=== PATIENT | female | born 1990 | race Asian ===

== ENCOUNTER 2018-04-21 06:18 | Day surgery (SDC) | payer BC ==
--- NOTE | 2018-04-08 10:36 | History and Physical ---
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 Past Medical History: unremarkable Social History:single, no children, employment-retail team member relations Past Medical History: unremarkable Diagnosis: vocal cord tumor Past Surgical History:none Occupational History: [employer] Social History Main Topics: unremarkable Smoking status:ex smoker Smokeless tobacco:none Alcohol use:social Drug use:none Sexual activity: Hetero. Partners: none at this time control/ protection: none Family History: unremarkable Allergies:NKDA Medications: Review of Symptoms: General ROS: no weight loss or fever Psychological ROS: no depression or mood changes, no memory loss Ophthalmic ROS: no visual changes or eye irritation ENT ROS: no nasal congestion, hearing loss, dizziness, VOCAL CORD TUMOR Allergy and Immunology ROS: no allergic symptoms or urticaria Hematological and Lymphatic ROS: no swollen glands, unusual bleeding or bruising Endocrine ROS: no polyuria, polydipsia, weight changes, temperature intolerance Respiratory ROS: no cough, shortness of breath, or wheezing Cardiovascular ROS: no chest pain or dyspnea on exertion Gastrointestinal ROS: no abdominal pain, change in bowel habits, or black or bloody stools Musculoskeletal ROS: no myalgias or arthralgias Neurological ROS: no TIA or stroke symptoms Dermatological ROS: no new or changing skin lesions, rashes or pruritis Physical Exam Vitals: 67 INCHES, 115 LBS bp 120/80 HR 70, RESP 12 Intake/Output Summary (Last 24 hours) General appearance: alert, cooperative, no distress, appears stated age Head: Normocephalic, without obvious abnormality, atraumatic Eyes: conjunctivae/corneas clear. PERRL, EOM's intact. Throat: Lips, mucosa, and tongue normal. Teeth and gums normal Neck: supple, symmetrical, trachea midline, no adenopathy, thyroid: not enlarged, symmetric, no tenderness/mass/nodules, no carotid bruit and no JVD Lungs: clear to auscultation bilaterally Heart: regular rate and rhythm, S1, S2 normal, no murmur, click, rub or gallop Abdomen: soft, non-tender. Bowel sounds normal. No masses, no organomegaly Extremities: extremities normal, atraumatic, no cyanosis or edema Pulses: 2+ and symmetric Skin: Skin color, texture, turgor normal. No rashes or lesions Neurologic: Grossly normal Laboratories:NONE-under 35 otherwise healthy Estimated:not sure what this means Imaging and ancillary data-none Assessment/Problem List: vocal cord tumor Plan:1. Microsuspension laryngoscopy Biopsy vocal cord DVT Prophylaxis: scd Code status: full Hospital Classification declaration: Based on this initial evaluation, and depending on the patient's clinical course, I anticipate that this patient will not require hospitalization. Disposition: Once the patient is stable to leave the hospital, I anticipate the patient will likely be discharged to the following environment-home. I spent 70 minutes on this patient's case, and minutes was dedicated to counseling and/or care coordination. Case was discussed with Time of note may not reflect time of encounter. Nathanael Rollins MD Apr 08, 2018 10:36
--- NOTE | 2018-04-08 10:42 | Pre-Procedure Note/Attestation ---
Pre-Procedure Note/Attestation Complete Prior to Procedure Planned Procedure: bilateral Procedure Narrative: Microsuspension laryngoscopy Biopsy vocal cord Indications for Procedure Pre-Operative Diagnosis: vocal cord nodule Attestation I attest that I discussed the nature of the procedure; its benefits; risks and complications; and alternatives (and the risks and benefits of such alternatives ), prior to the procedure, with the patient (or the patient's legal payable representative). I attest that, if there was a reasonable possibility of needing a blood transfusion, the patient (or the patient's legal payable representative) was given the [facility] standardized written summary, pursuant to the [place] Blood Safety Act ([place] Health and Safety Code # 1645, as amended). I attest that I re-evaluated the patient just prior to the surgery and that there has been no change in the patient's H&P.: Nathanael Rollins MD Apr 08, 2018 10:42
--- NOTE | 2018-04-20 15:09 | Pre-Procedure Note/Attestation ---
Pre-Procedure Note/Attestation Complete Prior to Procedure Planned Procedure: bilateral Procedure Narrative: Microsuspension laryngoscopy Excision of bilateral vocal cord nodules. Indications for Procedure Pre-Operative Diagnosis: vocal cord nodules Attestation I attest that I discussed the nature of the procedure; its benefits; risks and complications; and alternatives (and the risks and benefits of such alternatives ), prior to the procedure, with the patient (or the patient's legal sales training representative). I attest that, if there was a reasonable possibility of needing a blood transfusion, the patient (or the patient's legal sales training representative) was given the [facility] standardized written summary, pursuant to the [place] Blood Safety Act ([place] Health and Safety Code # 1645, as amended). I attest that I re-evaluated the patient just prior to the surgery and that there has been no change in the patient's H&P. Nathanael Rollins MD Apr 20, 2018 15:09
--- NOTE | 2018-04-20 15:10 | Brief Operative Note ---
Immediate Post Operative Note Operative Note Chief Complaint: dyphonia-vocal cord nodules Pre-op Diagnosis: vocal cord nodules Procedure: Microsuspension laryngoscopy Excision of bilateral vocal cord nodules. Post-op Diagnosis: same as pre-op Surgeon: Nathanael Rollins Emergency Room Doctor: none Additional Surgeons: none Anesthesiologist: Dr. Ortiz Anesthesia: general Specimen: yes Complications: none Condition: stable Fluids: D5LR Estimated Blood Loss: minimal Drains: none Packing: none Implant(s) used?: No Nathanael Rollins MD Apr 20, 2018 15:10
--- NOTE | 2018-04-20 15:18 | History and Physical ---
History & Physical (DB) History & Physical History & Physical Chief Complaint: Bilateral vocal cord nodules resulting in dysphonia Reason for Hospitalization: outpt surgery History obtained from: Chart and Patient HPI: is a 27 year old female who presents with dysphonia . Past Medical History: Social History: Single, no children Past Medical History: UNREMARKABLE Diagnosis:SINGERS NODULES Past Surgical History: none Social History: Single, no children Occupational History: Social History Main Topics: Smoking status: Stopped 1 year ago Smokeless tobacco:none Alcohol use:social Drug use:none Sexual activity:unknown Partners: unknown control/ protection:unknown Family History: Allergies:NKDA Medications:none Review of Symptoms: General ROS: no weight loss or fever-HOARSE VOICE x a few years. Psychological ROS: no depression or mood changes, no memory loss Ophthalmic ROS: no visual changes or eye irritation ENT ROS: no nasal congestion, hearing loss, dizziness Allergy and Immunology ROS: no allergic symptoms or urticaria Hematological and Lymphatic ROS: no swollen glands, unusual bleeding or bruising Endocrine ROS: no polyuria, polydipsia, weight changes, temperature intolerance Respiratory ROS: no cough, shortness of breath, or wheezing Cardiovascular ROS: no chest pain or dyspnea on exertion Gastrointestinal ROS: no abdominal pain, change in bowel habits, or black or bloody stools Musculoskeletal ROS: no myalgias or arthralgias Neurological ROS: no TIA or stroke symptoms Dermatological ROS: no new or changing skin lesions, rashes or pruritis Physical Exam Vitals: 67 inches, 110 lbs BP 120/80 HR 73 Resp 12 Intake/Output Summary (Last 24 hours) General appearance: alert, cooperative, no distress, appears stated age Head: Normocephalic, without obvious abnormality, atraumatic Eyes: conjunctivae/corneas clear. PERRL, EOM's intact. Throat: Lips, mucosa, and tongue normal. Teeth and gums normal Neck: supple, symmetrical, trachea midline, no adenopathy, thyroid: not enlarged, symmetric, no tenderness/mass/nodules, no carotid bruit and no JVD Lungs: clear to auscultation bilaterally Heart: regular rate and rhythm, S1, S2 normal, no murmur, click, rub or gallop Abdomen: soft, non-tender. Bowel sounds normal. No masses, no organomegaly Extremities: extremities normal, atraumatic, no cyanosis or edema Pulses: 2+ and symmetric Skin: Skin color, texture, turgor normal. No rashes or lesions Neurologic: Grossly normal FIBEROPTIC LARYNGOSCOPY-BILATERAL SINGERS NODULES (VOCAL CORDS) Laboratories: NOT INDICATED IN OTHERWISE HEALTHY 27 YEAR OLD Estimated: Imaging and ancillary data Assessment/Problem List:VILATERAL VOCAL CORD NODULES (SINGERS) Plan: Microsuspension laryngoscopy Excision of bilateral vocal cord nodules. DVT Prophylaxis: scd Code status: full Hospital Classification declaration: Based on this initial evaluation, and depending on the patient's clinical course, I anticipate that this patient will NOT require hospitalization. Disposition: Once the patient is stable to leave the hospital, I anticipate the patient will likely be discharged to the following environment-HOME I spent 70 minutes on this patient's case, and minutes was dedicated to counseling and/or care coordination. Case was discussed with Time of note may not reflect time of encounter. Nathanael Rollins MD Apr 20, 2018 15:18
--- NOTE | 2018-04-20 15:20 | Discharge Instructions ---
Discharge Instructions Discharge Instructions Follow up with: 04/26/18 1:[address] Rollins's office Diet: regular Resume Normal Activity?: Yes Activity: light activity Pneumonia Vaccine: pt refused vaccine Influenza Vaccine (Jan to Jun): pt refused vaccine Follow Up Orders pt has printed post op instructions given to her at her pre op appt. last week Return to Work/School on: May 04, 2018 Special Instructions NO whispering or yelling. When speaking, regular voice if possible. For Congestive Heart Failure Reminder Report to your physician any weight gain of 5 pounds or more in one week. Nathanael Rollins MD Apr 20, 2018 15:20
[2018-04-21] VITALS (13 sets, daily range): BP systolic 106–118; BP diastolic 58–90
[~2018-04-21] VITALS: Ht 170.2 cm; Wt 52.2 kg
[~2018-04-21 06:18] MED LIST: NORCO 5-325 TA1 EACH ORAL
[2018-04-21] MEDS ORDERED: Midazolam 2mg/2ml Inj ONE (07:03)
[2018-04-21] MEDS ORDERED: fentaNYL 100 mcg/2 mL IV ONE (07:03)
[2018-04-21] MEDS ORDERED: Lidocaine 1% MPF 10mg/ml 5ml ONE (07:06)
[2018-04-21] MEDS ORDERED: Propofol 200mg/20ml IV ONE (07:06)
[2018-04-21] MEDS ORDERED: ceFAZolin sod 1 GM in D5W 55 ML IV ONE (07:15)
[2018-04-21] MEDS ORDERED: Succinylcholine 20mg/ml 10ml vial ONE (07:17)
[2018-04-21] MEDS ORDERED: Zemuron 50mg/5ml Inj IV ONE (07:17)
[2018-04-21] MEDS ORDERED: Dexamethasone 4mg/ml vial IVP ONE (07:30)
[2018-04-21] MEDS ORDERED: Dexamethasone 4mg/ml vial ONE (07:33)
[2018-04-21] MEDS ORDERED: LR 1000ml ONE (07:45)
[2018-04-21] MEDS ORDERED: Midazolam 2mg/2ml Inj IVP PRN (07:45)
[2018-04-21] MEDS ORDERED: Sterile Water Irrig 1000ml IRRIG ONE (07:45)
[2018-04-21] MEDS ORDERED: LR 1000ml 1,000 ML IVLG SCH (07:45)
[2018-04-21] MEDS ORDERED: Metoclopramide 10mg/2ml Inj IVP PRN (07:45)
[2018-04-21] MEDS ORDERED: NS Irrig 1000ml ONE (07:45)
[2018-04-21] MEDS ORDERED: Meperidine 50mg/ml Inj(FOR RIGORS ONLY) IV PRN (07:45)
[2018-04-21] MEDS ORDERED: DiphenhydrAMINE 50mg/ml Inj IVP PRN (07:45)
--- NOTE | 2018-04-21 07:45 | Anethesia Preoperative Eval ---
Anesthesia Pre-op PMH/ROS General Date of Evaluation: Apr 21, 2018 Time of Evaluation: 07:42 Anesthesiologist: Ariadna ASA Score: ASA 2 Mallampati Score Class I : Soft palate, uvula, fauces, pillars visible Class II: Soft palate, uvula, fauces visible Class III: Soft palate, base of uvula visible Class IV: Only hard plate visible Mallampati Classification: Class II Surgeon: Ria Diagnosis: Dysphonia Surgical Procedure: Laryngoscopy with Bx Anesthesia History: none Social History: smoking - h/o Family History: no anesthesia problems Allergies: Coded Allergies: No Known Allergies (Unverified , 04/21/18) Medications: see eMAR Patient NPO?: Yes Past Medical History Cardiovascular: Denies: HTN, CAD, MA, valve dz, arrhythmia, other Pulmonary: Denies: asthma, COPD, [place], other Gastrointestinal/Genitourinary: Denies: GERD, CRI, ESRD, other Neurologic/Psychiatric: Reports: depression/anxiety; Denies: dementia, CVA, TIA, other Endocrine: Denies: DM, hypothyroidism, steroids, other HEENT: Denies: cataract (L), cataract (R), glaucoma, [place] (L), [place] (R), other Hematology/Immune: Denies: anemia, DVT, bleeding disorder, other Musculoskeletal/Integumentary: Denies: OA, RA, DJD, DDD, edema, other PMH Narrative: as above PSxH Narrative: none Anesthesia Pre-op Phys. Exam Physician Exam Last Vital Signs Date Time Temp Pulse Resp B/P (MAP) Pulse Ox O2 Delivery O2 Flow Rate FiO2 04/21/18 06:49 97.7 58 18 110/72 97 Room Air Constitutional: NAD Neurologic: CN 2-12 intact Cardiovascular: RRR, no M/R/G Respiratory: CTA Gastrointestinal: S/NT/ND Airway Exam Mallampati Score: Class II MO: full Neck: flexible ROM: full Teeth: intact Dentures: no upper, no lower Anesthesia Pre-op A/P Labs Urine Test Test 04/21/18 06:35 Urine HCG, Qualitative Negative (NEGATIVE) Risk Assessment & Plan Assessment: ASA 2 Plan: GA with ETT Status Change Before Surgery: No Pre-Antibiotics Drug: Ancef 1gr. Given Within 1 Hr of Incision: Yes Time Given: 07:52 Javon Rosenthal MD Apr 21, 2018 07:45
[2018-04-21] MEDS ORDERED: Glycopyrrolate 0.2mg/ml 1ml Vial ONE (08:08)
--- NOTE | 2018-04-21 08:53 | Immediate Post-Op Evaluation ---
Immediate Post-Op Evalulation Immediate Post-Op Evalulation Procedure: Laryngoscopy vocal cord mass Bx Date of Evaluation: Apr 21, 2018 Time of Evaluation: 08:52 IV Fluids: 800 Blood Products: n0ne Estimated Blood Loss: min Urinary Output: none Blood Pressure Systolic: 116 Blood Pressure Diastolic: 75 Pulse Rate: 85 Respiratory Rate: 22 O2 Sat by Pulse Oximetry: 98 Temperature (Fahrenheit): 97.4 Pain Score (1-10): 1 Nausea: No Vomiting: No Complications none Patient Status: reacts, patent, extubated, none Hydration Status: adequate Javon Rosenthal MD Apr 21, 2018 08:53
--- NOTE | 2018-04-21 10:02 | General Progress Note ---
Progress Note Progress Note Pt seen in RR at 0955-voice is much better than pre op and she is stable. Able to count to 10 without difficulty and voice is closer to normal than it was pre op. Nathanael Rollins MD Apr 21, 2018 10:02
--- NOTE | 2018-04-21 11:09 | 48 Hour Post Anesthesia Eval ---
Post Anesthesia Evaluation Procedure: Laryngoscopy vocal cord mass Bx Date of Evaluation: Apr 21, 2018 Time of Evaluation: 11:08 Blood Pressure Systolic: 116 0: 58 Pulse Rate: 72 Respiratory Rate: 20 Temperature (Fahrenheit): 97.6 O2 Sat by Pulse Oximetry: 98 Airway: patent Nausea: No Vomiting: No Pain Intensity: 1 Hydration Status: adequate Cardiopulmonary Status: stable Mental Status/LOC: patient returned to baseline Follow-up Care/Observations: n/a Post-Anesthesia Complications: none Follow-up care needed: ready to discharge Javon Rosenthal MD Apr 21, 2018 11:09
--- NOTE | 2018-04-22 00:42 | Operative Note - Dictated ---
DATE OF OPERATION: 04/21/2018 SURGEON: Nathanael Rollins M.D. CUSTOMER LOYALTY REPRESENTATIVE: None. ANESTHESIOLOGIST: Dr. Adorno. ANESTHESIA: Oral endotracheal anesthesia. INDICATION FOR SURGERY: The patient, who has bilateral vocal cord nodules larger on the right than the left. They are in the mid third of the vocal cord. The voice is getting worse over the past year. PREOPERATIVE DIAGNOSIS: Vocal cord nodules. POSTOPERATIVE DIAGNOSIS: Vocal cord Nodules. FINDINGS: Vocal cord nodules. PROCEDURES: 1. Microsuspension laryngoscopy. 2. Microscopic excision of bilateral vocal cord nodules mid cord. TECHNIQUE: The patient was prepped and draped in usual manner. A time-out was performed. All agreed as to the correct equipment was in the room. Procedure identified during time-out. Dedo scope was placed and I visualized the vocal cords via microscopic vision. I then proceeded to grasp the right cord with the right biter taking the small scissors taking in small incision anterior and posterior and dissecting this out. This was sent in small fragments. I then proceeded to address the left vocal cord. Similar procedure smaller nodules. Please note that these nodules were at the mid cord, not the anterior third otherwise I would not have removed both. Dedo scope was removed, teeth were checked. They were all as they were preop, which is intact, no chip. Please note also the mouth tooth guard had been placed prior to the Dedo scope in place. ESTIMATED BLOOD LOSS: Less than 1 mL. COMPLICATIONS: None. DRAINS: None. The patient tolerated the procedure well. Approximately an hour and 20 minutes later I visited the patient in recovery room. She was able to count to 10 without difficulty and noted that her voice was better than it was preop and closer to her normal voice. This is even with swelling. She is scheduled to be in the office on 04/26/2018 at 1:15 p.m. Nathanael Rollins M.D. DR: ANAMARIA JOB#: [id number] CC: JENI
== END 2018-04-21 10:50 | disposition home or self-care (01) ==
LOC: SUR 06:18
DX: J38.1 Polyp of vocal cord and larynx (principal); F32.9 Major depressive disorder, single episode, unspecified; F41.9 Anxiety disorder, unspecified; Z87.891 Personal history of nicotine dependence
CPT/HCPCS: 31541; 81025; J0330; J0690; J1100; J2250; J2405; J2704; J3010; 94003; 94150